=== PATIENT | female | born 2000 ===

== ENCOUNTER 2019-09-26 14:53 | Emergency (ER) | payer SELFPAY ==
--- NOTE | 2019-09-26 15:25 | ED Physician Documentation ---
General Adult - HISTORIAN Historian: patient - HPI Stated Complaint: Dizzy, nausea Chief Complaint: General Adult Onset: days ago (1) Timing: still present Severity: moderate Further Comments: yes (Pt is a 19 yo female with n/v, malaise, feverish since yesterday. Pt has a seizure d/o and had a seizure 2 days ago. The next day she missed a dose of her Trileptal and so took a double dose last evening, after which she developed the nausea/vomiting. Pt continued to have n/v today and had to leave work because of it. No sx of UTI.) - ROS CONST: chills, other (dizzy) EYES/ENT: none CVS/RESP: none GI/: vomiting, nausea MS/SKIN/LYMPH: none NEURO/PSYCH: dizziness - PAST HX Past History: other (seizure d/o) Surgeries/Procedures: other (Tonsils & Adenoids) Allergies/Adverse Reactions: Allergies Allergy/AdvReac Type Severity Reaction Status Date / Time playdough Allergy Uncoded 09/26/19 15:14 Home Medications: Ambulatory Orders Medication Instructions Recorded Oxcarbazepine [Trileptal] 300 mg PO BID 09/26/19 - SOCIAL HX Smoking History: cigarettes Drug Use: marijuana (daily) - FAMILY HX Family History: No - VITAL SIGNS Vital Signs: Vital Signs Temp Pulse Resp BP Pulse Ox 98.2 F 84 14 116/69 99 09/26/19 14:53 09/26/19 14:53 09/26/19 14:53 09/26/19 14:53 09/26/19 14:53 - REVIEWED ASSESSMENTS Nursing Assessment Reviewed: Yes Vitals Reviewed: Yes Progress - Progress Progress: NS 1 L IVF Zofran 4 mg IV improved General Adult Physical Exam - PHYSICAL EXAM GENERAL APPEARANCE: mild distress EENT: pharynx normal NECK: normal inspection, supple RESPIRATORY: no resp distress, chest non-tender, breath sounds normal CVS: reg rate & rhythm, heart sounds normal ABDOMEN: soft, no organomegaly, normal bowel sounds BACK: normal inspection, no CVA tenderness SKIN: warm/dry, normal color EXTREMITIES: non-tender, normal range of motion, no evidence of injury, no edema NEURO: oriented X3, motor nml, sensation nml Discharge Clincal Impression: Nausea & vomiting Qualifiers: Vomiting type: unspecified Vomiting Intractability: non-intractable Qualified Code(s): R11.2 - Nausea with vomiting, unspecified Referrals: Primary Doctor,No [Primary Care Provider] - Condition: Stable Disposition: 01 HOME, SELF-CARE Decision to Admit: NO Decision Time: 16:53
[2019-09-26] MEDS ORDERED: 0.9 % SODIUM CHLORIDE 1,000 ML IV ONE (15:40)
[2019-09-26] MEDS ORDERED: ONDANSETRON HCL/PF 4 MG/ 2ML VIAL IVP ONE (15:41)
[2019-09-26 15:59] LABS: BASOPHILS % 0.4 % (0.0-1.5); NEUTROPHILS # 3.6 # k/uL (1.4-7.7)
[2019-09-26 16:16] LABS: eGFR (Non-African) > 60
[2019-09-26 17:04] VITALS: BP 112/64
[2019-09-27 06:32] LABS: OCCULT BLOOD,URINE NEGATIVE (NEGATIVE)
[2019-09-27 06:33] LABS: URINE HCG NEGATIVE (NEGATIVE)
== END 2019-09-26 17:02 | disposition home or self-care (01) ==
LOC: ED 14:53 → EDBD 14:53 → ED 17:02
DX: R11.2 Nausea with vomiting, unspecified (principal)
CPT/HCPCS: 80053; 81002; 81025; 85025; 96361; 96374; 99282; 99284; J2405; J7030; S1016

== ENCOUNTER 2019-12-06 16:01 | Emergency (ER) | payer SELFPAY ==
[2019-12-06] MEDS ORDERED: 0.9 % SODIUM CHLORIDE 1,000 ML IV ONE (16:27)
--- NOTE | 2019-12-06 16:35 | ED Physician Documentation ---
Syncope/Near Syncope - HISTORIAN Historian: patient - HPI Chief Complaint: Near Syncope Additional Information: 19 year old female presents with complaint of 3 "black out seizures" that began today around 12:30 today. Patient states she was making something to eat when she began to get sweaty, vision and hearing loss and then she fell to the floor. She states once she was on the floor, everything "came back" and she was fine. She has had recurring episodes of this x 6 years. She states that she use to be on Trileptal prescribed by Psychiatrist; has not been formally diagnosed with seizures by Neurologist. She has been trying to get into the [facility] due to no insurance or job but she has not heard anything back; she states that she emailed her packet; told her to hand deliver it. Witnessed: No Position at Time of Episode: standing Symptoms Prior to Episode: visual disturbance Character of Events(s): felt faint, almost passed out Symptoms after Event: denies: incontinent of urine, incontinent of stool Location of Injury: none Associated Symptoms: light-headedness - ROS CONST: recent illness, cough EYES/ENT: none GI/: denies: diarrhea LNMP: denies: MS/SKIN/LYMPH: denies: rash NEURO/PSYCH: denies: anxiety - PAST HX Cardiac Disease: other (seizure) PE Risk Factors: none Surgeries/Procedures: appendectomy (tonsils) Immunizations: UTD Allergies/Adverse Reactions: Allergies Allergy/AdvReac Type Severity Reaction Status Date / Time playdough Allergy Uncoded 12/06/19 16:26 Home Medications: Ambulatory Orders Medication Instructions Recorded Albuterol Sulfate [Albuterol 2 inh IH Q4H PRN #1 hfa.aer.ad 12/06/19 Sulfate Hfa] Azithromycin [Zithromax] 250 mg PO DAILY #6 tablet 12/06/19 Methylprednisolone [Medrol] 4 mg PO DAILY #1 tab.ds.pk 12/06/19 - SOCIAL HX Smoking History: less than 1 pack/day Alcohol Use: none Drug Use: marijuana - FAMILY HX Family History: none - VITAL SIGNS Vital Signs: Vital Signs Temp Pulse Resp BP Pulse Ox 98.0 F 90 16 131/67 99 12/06/19 16:01 12/06/19 16:01 12/06/19 16:01 12/06/19 16:01 12/06/19 16:01 - REVIEWED ASSESSMENTS Nursing Assessment Reviewed: Yes Vitals Reviewed: Yes Progress - Progress Progress: 17:25 patient feeling much better. ED Results Lab/Radiology - Orders Orders: ED Orders Category Date Time Status Place IV Lock 1T Care 12/06/19 16:27 Active CBC/PLATELET/DIFF Routine Lab 12/06/19 16:35 Received CMP Routine Lab 12/06/19 16:35 Received 0.9 % Sodium Chloride [Normal Saline] 1,000 ml Med 12/06/19 16:27 Discontinued IV NOW EKG WITH COMPARISON Stat Ther 12/06/19 Ordered Syncope Physical Exam - Physical Exam General Appearance: no acute distress, alert EENT: nml eye inspection, PERRL, nml ENT inspection, pharynx nml Neck/Back: neck supple, no carotid bruit Respiratory: rhonchi (wheezing) CVS: heart sounds normal, equal pulses Abdomen: nml bowel sounds Skin: warm/dry, normal color Extremities: normal range of motion - Neuro/Psych Higher Functions: alert, oriented x3, mood/affect nml Sensorimotor: nml motor response, nml sensory response, nml gait Discharge Clincal Impression: Upper respiratory infection with cough and congestion, Dehydration Prescriptions: Albuterol Sulfate [Albuterol Sulfate Hfa] 2 inh IH Q4H PRN #1 hfa.aer.ad PRN Reason: Shortness of breath/ Wheezing Azithromycin [Zithromax] 250 mg PO DAILY #6 tablet Methylprednisolone [Medrol] 4 mg PO DAILY #1 tab.ds.pk Referrals: Primary Doctor,No [Primary Care Provider] - 2 Days Additional Instructions: Take antibiotic as directed; Zithromax 250mg-take 2 tabs. today; then 1 tab. daily x 4 days Medrol dose pack; take as directed Albuterol inhaler; 2 puffs every 4 hours as needed for shortness of breath or wheezing Increase fluid intake > 64 oz of water [facility] [place]- complete packet and hand it in Condition: Good Disposition: 01 HOME, SELF-CARE Decision to Admit: NO Decision Time: 17:34
[2019-12-06 17:40] VITALS: BP 104/60
== END 2019-12-06 17:38 | disposition home or self-care (01) ==
LOC: ED 16:01
DX: J06.9 Acute upper respiratory infection, unspecified (principal); F17.210 Nicotine dependence, cigarettes, uncomplicated; E86.0 Dehydration
CPT/HCPCS: 80053; 85025; 93005; 96360; 99284; J7030; S1016